=== PATIENT | male | born 1980 | race Caucasian/White ===

== ENCOUNTER 2024-04-15 17:26 | Emergency (ER) | payer BC, SELFPAY ==
[2024-04-15 17:27] VITALS: BP 131/90
--- NOTE | 2024-04-15 18:16 | ED.GENMED ---
History of Present Illness
General
Chief Complaint: Skin Problem
Source: patient
Exam Limitations: none
Time Seen by Provider: 04/15/24 17:56
Nursing documentation reviewed up to this point in time: agreed with
History of Present Illness
History of Present Illness:
43-year-old male presenting to the emergency department today with concerns of initially poison duyen last week has been on treatment for at least 7 days at this point noticed hives scattered since over the past few days. Recently stopped the
prednisone a day or 2 ago. Denies any trouble swallowing or breathing denies additional symptoms
Past History
Past History
ED Past Medical History: None
ED Past Surgical History: None
Patient has exhibited threatening behavior?: No
Social History
Living: with family
Employment: Employed
Review of Systems
Review of Systems
Allergies reviewed?: Yes
All Other Systems: ROS reviewed and negative except as documented in HPI and ROS
Phy Exam
Physical Exam
Physical Exam:
GENERAL: Alert , in no apparent distress
EYE: pupils equal and reactive
NECK: Supple, no significant adenopathy.
ENT: o/p clr, mmm.
CARDIAC: Regular rate and rhythm .
LUNGS: Clear breath sounds bilaterally, no acute respiratory distress, no wheezes/rales/rhonchi
ABDOMEN: Soft, without focal tenderness, no r/g, no cvat
NEUROLOGICAL: Alert and oriented, no focal neuro deficits
SKIN: Warm and dry, skin intact.
MUSCULOSKELETAL: No edema, well perfused.
PSYCH: Normal and appropriate interaction.
Scattered red raised rash some areas that are papular some seem to be more confluent patches. No discharge
Course
Orders/Labs/Results
Orders:
Orders
04/15/24 18:04
Dexamethasone [Decadron] 10 mg PO NOW STA
Famotidine [Pepcid] 40 mg PO NOW STA
Vital Signs
Initial and Last Documented VS:
Initial Vital Signs
Temp Pulse Resp BP Pulse Ox
98.1 F 72 16 131/90 97
04/15/24 17:27 04/15/24 17:27 04/15/24 17:27 04/15/24 17:27 04/15/24 17:27
Last Documented Vital Signs
Temp Pulse Resp BP Pulse Ox
98.1 F 72 16 131/90 97
04/15/24 17:27 04/15/24 17:27 04/15/24 17:27 04/15/24 17:27 04/15/24 17:27
MDM/Problems Addressed
MDM/Problems Addressed:
43-year-old male presenting to the emergency department with worsening rash over the past 2 days. Treated with poison duyen initially took the first week of prednisone with some improvement then noticed some worsening rash. He thinks they
potentially could be hives denies any trouble swallowing breathing shortness of breath abdominal pain or vomiting. Denies any fevers. Rash looks like potentially worsening poison duyen but some areas are confluent which could be consistent with
hives which are unclear the type of steroid was switched to dexamethasone was given a single dose here as well as ongoing prescription at home. Otherwise he was started on antihistamine as well as topicals to help with symptoms return precautions
were given. No signs of anaphylaxis does have an EpiPen at home.
*Critical Care Note
Total Time (30-74mins, 75-104mins- exclusive of procedures): Not Applicable
ED Attending Note
-
Portions of this chart may have been created with voice recognition software.� Occasional wrong word or��sound alike� substitutions may have occurred due to the inherent limitations of voice recognition software.
Discharge Plan
Departure
Patient Disposition: Home (Routine Discharge)
Date of Disposition: 04/15/24
Time of Disposition: 18:21
Patient with high blood pressure during this ER visit?: No
Condition: Good
Covid-19: Not Applicable
Discharge Problem:
Allergic reaction
Prescriptions:
New
dexamethasone 2 mg tablet
See Rx Instructions .ROUTE .COMPLEX Qty: 10 0RF
Rx Instructions:
10mg(5 tabs) on 04/17, 6mg(3 tabs) on 04/19, 4mg (2 tabs) on 04/21
cetirizine [Zyrtec] 10 mg tablet
10 mg PO BID 5 Days Qty: 10 0RF
famotidine 20 mg tablet
20 mg PO BID 5 Days Qty: 10 0RF
betamethasone, augmented 0.05 % ointment
1 applic topical BID PRN (Reason: allergic reaction) Qty: 50 0RF
Activity Restrictions/Additional Instructions:
You came to the emergency department today with concerns of worsening rash. This could be hives or worsening poison duyen. Please take the newly prescribed medications to help with symptoms and return for any worsening, new or concerning symptoms.
Interventions
Interventions:
*Risk Screen - Suicide Last Done: 04/15/24 17:58
*General Assessment Last Done: 04/15/24 17:27
*Neglect/Abuse Screening Last Done: 04/15/24 17:58
*ED COVID-19 Vaccine History Last Done: 04/15/24 17:27
Discharge Date and Time
Print Language: BOLIVIAN
[2024-04-15] MEDS: DECADRON 10 MG PO (18:24)
[2024-04-15] MEDS: PEPCID 40 MG PO (18:24)
== END 2024-04-15 18:47 | disposition home or self-care (01) ==
LOC: EMR 17:26
PROVIDERS: EMERGENCY PHYSICIAN Emergency Medicine; FAMILY PHYSICIAN Internal Medicine
DX: T78.40XA Allergy, unspecified, initial encounter (principal); X58.XXXA Exposure to other specified factors, initial encounter
CPT/HCPCS: 99282

== ENCOUNTER 2025-06-09 09:29 | Emergency (ER) | payer SELFPAY ==
[2025-06-09 09:31] VITALS: BP 156/93
--- NOTE | 2025-06-09 09:51 | EDRN ---
Pt does not know rabies status of dog that bit him. Pt was advised to find out if he can. Gera NOLAND was just in to see pt.
[2025-06-09 09:52] VITALS: BMI 28.7
--- NOTE | 2025-06-09 09:55 | ED.SKININJ ---
HPI-Injury
General
Chief Complaint: Bite
Time Seen by Provider: 06/09/25 09:43
History of Present Illness-Injury
Initial Injury comments:
44-year-old male presents to the emergency department for evaluation of a right hand laceration sustained when he was bitten by a dog while on the job site. Uncertain at this time if the dog is up-to-date on rabies vaccination however he will be
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 Small laceration to the right palm thenar eminence, denies distal paresthesias. Last tetanus 1 year ago
Past History
Past History
ED Past Medical History: None
ED Past Surgical History: None
Patient has exhibited threatening behavior?: No
Social History
Living: with family
Employment: Employed
Review of Systems
Review of Systems
Allergies reviewed?: Yes
All Other Systems: ROS reviewed and negative except as documented in HPI and ROS
Phy Exam
Physical Exam
Physical Exam:
GEN: Well appearing, NAD, WDWN
HEENT: Oral mucosa moist, no scleral icterus
Cardiac: Regular rate
Lung: No respiratory distress, no tachypnea
MSK: No gross deformity or injuries
Skin: Good color, no pallor or jaundice, no rashes. 2 cm jagged laceration to the right palm thenar eminence, no visible tendon injury, normal index and thumb ROM
Neuro: AO x3, moves all extremities freely
Psych: Calm, cooperative
Course
Vital Signs
Initial and Last Documented VS:
Initial Vital Signs
Temp Pulse Resp BP Pulse Ox
98.1 F 60 18 156/93 100
06/09/25 09:31 06/09/25 09:31 06/09/25 09:31 06/09/25 09:31 06/09/25 09:31
Last Documented Vital Signs
Temp Pulse Resp BP Pulse Ox
98.1 F 60 18 156/93 100
06/09/25 09:31 06/09/25 09:31 06/09/25 09:31 06/09/25 09:31 06/09/25 09:56
Procedures
Laceration Closure
R hand:
Status of Wound: clean
Size of Wound in cm: 2
Description of Wound Edges: ragged
Preparation: cleaned with saline
Anesthesia: 1% Lidocaine with epi
Wound exploration: explored to base- no FB and no tendon involvement
Type of Closure: single layer closure
Skin Closure Material: 5-0 prolene
Number of sutures: 4
MDM/Problems Addressed
MDM/Problems Addressed:
As the wound was quite open and then a flexural surface of the hand we opted for loose closure with external sutures. Will start on antibiotics presumptively. Patient was able to follow-up with the [employer] teacher and confirm rabies vaccination status
is up-to-date
*Pulse Oximetry
SaO2: 100
Oxygen Mode of Delivery: Room air
Patient hypoxic: no
*Critical Care Note
Total Time (30-74mins, 75-104mins- exclusive of procedures): Not Applicable
ED Attending Note
-
Portions of this chart may have been created with voice recognition software.� Occasional wrong word or��sound alike� substitutions may have occurred due to the inherent limitations of voice recognition software.
Discharge Plan
Departure
Patient Disposition: Home (Routine Discharge)
Date of Disposition: 06/09/25
Time of Disposition: 10:08
Patient with high blood pressure during this ER visit?: No
Discharge Problem:
Dog bite of right hand
Instructions: Laceration Repair With Stitches (DC)
Prescriptions:
New
amoxicillin-pot clavulanate 875-125 mg tablet
1 tab PO BID Qty: 10 0RF
No Action
dexamethasone 2 mg tablet
See Rx Instructions .ROUTE .COMPLEX Qty: 10 0RF
Rx Instructions:
10mg(5 tabs) on 04/17, 6mg(3 tabs) on 04/19, 4mg (2 tabs) on 04/21
cetirizine [Zyrtec] 10 mg tablet
10 mg PO BID 5 Days Qty: 10 0RF
famotidine 20 mg tablet
20 mg PO BID 5 Days Qty: 10 0RF
betamethasone, augmented 0.05 % ointment
1 applic topical BID PRN (Reason: allergic reaction) Qty: 50 0RF
Referrals:
Yung Bell I., DO [Family Provider, Internal Medicine]
Activity Restrictions/Additional Instructions:
Keep dry for the next 24 hours then wash daily with soap and water
Please keep heavily bandage for work purposes
Suture removal in 10 days either at urgent care or primary care
Interventions
Interventions:
*Risk Screen - Suicide Last Done: 06/09/25 09:31
*General Assessment Last Done: 06/09/25 09:52
*Neglect/Abuse Screening Last Done: 06/09/25 09:57
*ED- Fall Risk Assessment Last Done: 06/09/25 09:52
*ED COVID-19 Vaccine History Last Done: 06/09/25 09:52
*Nursing Disposition Last Done: 06/09/25 10:15
ED-Skin Assessment Last Done: 06/09/25 09:57
Discharge Date and Time
Discharge Date/Time: 06/09/25 10:15
Print Language: NIUEAN
--- NOTE | 2025-06-09 10:00 | EDRN ---
Gera NOLAND in room w/ pt.
== END 2025-06-09 10:15 | disposition home or self-care (01) ==
LOC: EMR 09:29
PROVIDERS: EMERGENCY PHYSICIAN Emergency Medicine; FAMILY PHYSICIAN Internal Medicine
DX: S61.451A Open bite of right hand, initial encounter (principal); W54.0XXA Bitten by dog, initial encounter
CPT/HCPCS: 99282; 12001